=== PATIENT | male | born 1970 | race Caucasian/White ===

== ENCOUNTER 2020-07-04 23:46 | Emergency (ER) | payer SELFPAY ==
[2020-07-05 02:19] LABS: VENOUS BLOOD BASE EXCESS -2.2 mmol/L; VENOUS BLOOD HCO3 22.3 mmol/L (20-32); VENOUS BLOOD PCO2 37.6 mmHg (35-63); VENOUS BLOOD PH 7.39 (7.30-7.42)
[2020-07-05 02:20] LABS: HEMATOCRIT 43.9 % (37.9-51.0); HEMOGLOBIN 15.1 g/dL (13.5-17.0); MEAN CORPUSCULAR HEMOGLOBIN 32.4 pg (27.0-33.4); MEAN CORPUSCULAR HGB CONC 34.3 g/dL (32.0-36.0); MEAN CORPUSCULAR VOLUME 94 fl (80-97); PLATELET COUNT 325 10^3/uL (150-450); RED BLOOD COUNT 4.64 10^6/uL (4.35-5.55); RED CELL DISTRIBUTION WIDTH 15.1 % (11.5-14.0); WHITE BLOOD COUNT 6.1 10^3/uL (4.0-10.5)
[2020-07-05 02:27] LABS: INTERNATIONAL RATION (INR) 1.37
[2020-07-05 02:28] LABS: PARTIAL THROMBOPLASTIN TIME 40.4 SEC (23.5-35.8)
[2020-07-05 02:38] LABS: ALBUMIN 4.6 g/dL (3.5-5.0); ALCOHOL 277 mg/dL (NONE DETECTED); ALKALINE PHOSPHATASE 104 U/L (38-126); ANION GAP 9 (5-19); ASPARTATE AMINO TRANSFERASE 236 U/L (17-59); BILIRUBIN,DIRECT 0.2 mg/dL (0.0-0.4); BILIRUBIN,TOTAL 0.5 mg/dL (0.2-1.3); BLOOD UREA NITROGEN 21 mg/dL (7-20); CALCIUM 8.8 mg/dL (8.4-10.2); CARBON DIOXIDE 24 mmol/L (22-30); CHLORIDE 108 mmol/L (98-107); GLUCOSE 106 mg/dL (75-110); POTASSIUM 4.3 mmol/L (3.6-5.0); TOTAL PROTEIN 7.7 g/dL (6.3-8.2)
[2020-07-05 02:40] LABS: ABSOLUTE LYMPHOCYTES# (MANUAL) 1.8 10^3/uL (0.5-4.7); ABSOLUTE MONOCYTES # (MANUAL) 0.1 10^3/uL (0.1-1.4); BASOPHILS % (MANUAL) 1 % (0-2); EOSINOPHILS % (MANUAL) 5 % (0-6); LYMPHOCYTES % (MANUAL) 29 % (13-45); MONOCYTES % (MANUAL) 1 % (3-13); SEGMENTED NEUTROPHILS % (MAN) 64 % (42-78); TOTAL CELLS COUNTED 100
[2020-07-05 02:41] LABS: ANISOCYTOSIS SLIGHT; OVALOCYTES SLIGHT; POIKILOCYTOSIS SLIGHT; TEAR DROP CELLS SLIGHT
[2020-07-05 02:42] LABS: PLATELET COMMENT ADEQUATE
[2020-07-05 04:43] LABS: APPEARANCE,URINE CLEAR; BILIRUBIN,URINE NEGATIVE (NEGATIVE); COLOR,URINE YELLOW; GLUCOSE, URINE NEGATIVE (NEGATIVE); KETONES,URINE NEGATIVE (NEGATIVE); LEUKOCYTE ESTERASE,URINE NEGATIVE (NEGATIVE); NITRITE,URINE NEGATIVE (NEGATIVE); PROTEIN,URINE NEGATIVE (NEGATIVE); URINE SPECIFIC GRAVITY 1.011; UROBILINOGEN,URINE NEGATIVE mg/dL (<2.0)
[2020-07-05] MEDS ORDERED: NORMAL SALINE 1000 ML 1,000 ML IV ONE (04:57)
[2020-07-05] MEDS ORDERED: PANTOPRAZOLE SODIUM 40 MG VIAL IV PRN (04:58)
[2020-07-05] MEDS ORDERED: ONDANSETRON HCL INJ/PF 4 MG/2 ML SDV IV ONE ×3 (04:58→07:49)
[2020-07-05] MEDS ORDERED: PANTOPRAZOLE SODIUM 40 MG VIAL IV ONE (04:58)
[2020-07-05] MEDS ORDERED: CEFTRIAXONE 1 GM/D5W RTU 1 GM/50 ML RTUPB IV ONE (04:59)
[2020-07-05] MEDS ORDERED: METOPROLOL TARTRATE PF/INJ 5 MG/5 ML SDV IV ONE (05:00)
--- NOTE | 2020-07-05 07:20 | ER Document Report ---
ED General - General Chief Complaint: ETOH Abuse Stated Complaint: ETOH/ABNORMAL LABS - HPI Notes: 50-year-old male history of hypertension, alcohol dependence presents referred from [facility] for elevated alcohol level. Patient complains of one episode of bright red blood hematemesis just prior to arrival and epigastric abdominal pain. Says he has had GI bleed in the past but is unsure what interventions were performed, with the source of the bleed was, and if he was ever diagnosed with esophageal varices. Denies having cirrhosis. 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 EENT: Denies recent cold/sinus symptoms, denies throat pain CARDIOVASCULAR: Denies chest pain, ALEXANDR RESPIRATORY: Denies cough, denies shortness of breath. GASTROINTESTINAL: +abdominal pain, +nausea/vomiting. GENITOURINARY: Denies difficulty urinating, painful urination. MUSCULOSKELETAL: Denies neck pain, back pain. SKIN: Denies rash or skin lesions. HEMATOLOGIC : Denies easy bruising or bleeding. LYMPHATIC: Denies swollen, enlarged glands. NEUROLOGICAL: Denies headache, denies change in gait. PSYCHIATRIC: Denies anxiety or stress or depression. Physical Exam - Vital signs Vitals: Temp Pulse Resp BP Pulse Ox 98.4 F 116 H 18 201/110 H 96 07/05/20 00:13 07/05/20 00:13 07/05/20 00:13 07/05/20 00:13 07/05/20 00:13 - Notes Notes: PHYSICAL EXAMINATION: GENERAL: Well-appearing, well-nourished and in no acute distress. HEAD: Atraumatic, normocephalic. EYES: Pupils equal round and appropriate constriction, sclera anicteric, conjunctiva are normal. ENT: nares patent, moist mucous membranes. NECK: Normal range of motion, supple without lymphadenopathy LUNGS: Breath sounds clear to auscultation bilaterally and equal. No wheezes rales or rhonchi. HEART: Regular rate and rhythm without murmurs ABDOMEN: Soft, distended with fluid wave, no caput medusae, mild epigastric tenderness, no guarding, no rebound, no masses, no CVAT EXTREMITIES: Normal range of motion, no pitting or edema. No cyanosis. NEUROLOGICAL: Awake, alert, conversing appropriately, moves all extremities spontaneously. PSYCH: Normal mood, normal affect. SKIN: Warm, Dry, normal turgor, no rashes or lesions noted. Course - Re-evaluation Re-evalutation: 07/05/20 07:14 When episode hematemesis, well-appearing, normal vital signs. Initially markedly hypertensive, states he ran out of his metoprolol. No episodes of hematemesis in ED. No bowel symptoms. Labs show hemoglobin of 15 and INR of 1. 37. Given presence of cirrhosis attempted to arrange transfer for upper GI bleed low suspicion for variceal bleed however. Called [facility], [facility] for transfer and all said that they had no medicine beds and were not making a wait list. Called [facility] and initiated transfer, waiting for return phone call from circuit board inspector. Turned over to Dr. Bee pending transfer acceptance. - Vital Signs Vital signs: Temp Pulse Resp BP Pulse Ox 98 F 98 18 148/76 H 96 07/05/20 04:39 07/05/20 04:39 07/05/20 04:39 07/05/20 04:39 07/05/20 04:39 - Laboratory Result Diagrams: 07/05/20 02:09 07/05/20 02:09 Laboratory results interpreted by me: 07/05/20 07/05/20 07/05/20 02:09 02:09 02:09 RDW 15.1 H Monocytes % (Manual) 1 L PT 17.0 H APTT 40.4 H Chloride 108 H BUN 21 H AST 236 H ALT 148 H
[2020-07-05 07:48] LABS: HEMATOCRIT 41.2 % (37.9-51.0); HEMOGLOBIN 14.2 g/dL (13.5-17.0); MEAN CORPUSCULAR HEMOGLOBIN 32.3 pg (27.0-33.4); MEAN CORPUSCULAR HGB CONC 34.4 g/dL (32.0-36.0); MEAN CORPUSCULAR VOLUME 94 fl (80-97); PLATELET COUNT 266 10^3/uL (150-450); RED BLOOD COUNT 4.39 10^6/uL (4.35-5.55); RED CELL DISTRIBUTION WIDTH 14.8 % (11.5-14.0); WHITE BLOOD COUNT 4.5 10^3/uL (4.0-10.5)
[2020-07-05 08:34] LABS: ABSOLUTE LYMPHOCYTES# (MANUAL) 1.4 10^3/uL (0.5-4.7); ABSOLUTE MONOCYTES # (MANUAL) 0.2 10^3/uL (0.1-1.4); EOSINOPHILS % (MANUAL) 3 % (0-6); LYMPHOCYTES % (MANUAL) 31 % (13-45); MONOCYTES % (MANUAL) 5 % (3-13); SEGMENTED NEUTROPHILS % (MAN) 58 % (42-78); TOTAL CELLS COUNTED 100
[2020-07-05 08:37] LABS: ANISOCYTOSIS SLIGHT; RBC MORPHOLOGY COMMENT NORMO-CYTIC/CHROMIC
[2020-07-05 08:38] LABS: PLATELET COMMENT ADEQUATE; POIKILOCYTOSIS SLIGHT; TEAR DROP CELLS SLIGHT
[2020-07-05 08:45] LABS: BASOPHILS % (MANUAL) 3 % (0-2)
--- NOTE | 2020-07-05 09:04 | RADIOLOGY REPORT (SQ) ---
EXAM DESCRIPTION: U/S ABDOMEN LIMITED W/O DOP IMAGES COMPLETED DATE/TIME: 07/05/2020 8:51 am REASON FOR STUDY: ruq pain COMPARISON: None. TECHNIQUE: Dynamic and static grayscale images acquired of the abdomen and recorded on PACS. Additio nal selected color Doppler and spectral images recorded. LIMITATIONS: None. FINDINGS: PANCREAS: No masses. Visualized pancreatic duct normal caliber. LIVER: The liver is enlarged measured at 19 wing 4 cm in cranial caudal dimensions. Normal echogenic ity. No masses. LIVER VASCULATURE: Normal directional flow of the main portal vein and hepatic veins. GALLBLADDER: Surgically absent. ULTRASOUND-DETECTED CARDONA'S SIGN: Negative. INTRAHEPATIC DUCTS AND COMMON DUCT: The common bile duct measures 8.2 mm in diameter. AORTA: No aneurysm. RIGHT KIDNEY: Normal size. Normal echogenicity. No solid or suspicious masses. No hydronephrosis. No calcifications. PERITONEAL AND RIGHT PLEURAL SPACE: No ascites or effusions. OTHER: No other significant findings. IMPRESSION: 1. Hepatomegaly. The liver measures 19.4 cm in cranial caudal dimensions. 2. Mild dilatation of the common bile duct measured 8.2 mm. The patient has had prior cholecystecto my. No intrahepatic biliary ductal dilatation. TECHNICAL DOCUMENTATION: JOB ID: [id number] [employer]- All Rights Reserved Reading location - IP/workstation name: [email or web address]
[2020-07-05] MEDS ORDERED: LORAZEPAM INJ 2 MG/1 ML VIAL IV ONE (09:22)
[2020-07-05] MEDS ORDERED: DICYCLOMINE HCL INJ 20 MG/2 ML AMPULE IM ONE (09:49)
--- NOTE | 2020-07-05 10:35 | ER Document Report ---
ED General - General Chief Complaint: ETOH Abuse Stated Complaint: ETOH/ABNORMAL LABS Time Seen by Provider: 07/05/20 10:29 - HPI Notes: Patient is a 50-year-old male who presents to the emergency department for evaluation. He was initially brought up from [place] by a friend to go to [facility] for alcohol detox. The patient admits to drinking daily for the last 2 to 3 weeks. He states he binge drinks. He states he has had alcohol withdrawal seizures in the past. He tells me he is only drank 140 ounce glass of malt liquor yesterday. He denies use of any other illicit drugs. He states while in the waiting room at [facility] he developed vomiting, states he vomited some bright red blood. He states he is not really sure how much, he states he believes he swallowed most of it. I asked him about bowel movements, he states the last ones have been "purple, red, and green." The patient states he had a colonoscopy about 8 months ago, states he was told he has colitis. He is unsure as to whether or not he is ever had an EGD. He denies ever having been told that he has esophageal varices. He does take Protonix daily. He has some cramping epigastric abdominal pain. He has been diagnosed with chronic pancreatitis in the past. 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 Past Medical History - General Information source: Patient - Social History Smoking Status: Current Every Day Smoker Frequency of alcohol use: Heavy Drug Abuse: None Family History: Other - Cirrhosis Patient has homicidal ideation: No - Past Medical History Cardiac Medical History: Reports: Hx Hypertension Pulmonary Medical History: Reports: Hx COPD Past Surgical History: Reports: Hx Cholecystectomy Review of Systems - Review of Systems Constitutional: Weakness Gastrointestinal: See HPI Neurological/Psychological: See HPI -: Yes All other systems reviewed and negative Physical Exam - Vital signs Vitals: Temp Pulse Resp BP Pulse Ox 98.4 F 116 H 18 201/110 H 96 07/05/20 00:13 07/05/20 00:13 07/05/20 00:13 07/05/20 00:13 07/05/20 00:13 - Notes Notes: This is a 50-year-old male who appears her stated age, no acute distress. Vital signs reviewed, please refer to chart. Head is normocephalic, atraumatic. Pupils equal round, reactive to light. Neck is supple without meningismus. Heart is regular rate and rhythm. Lungs are clear to auscultation bilaterally. Abdomen is soft, mildly tender in the epigastrium and right upper quadrant without rebound or guarding, normoactive bowel sounds throughout. Extremities without cyanosis, clubbing. Posterior calves are nontender. Peripheral pulses are equal. Skin is warm and dry. Patient is awake, alert, neurological exam is nonfocal. Rectal exam was performed with GARRETT Sow, present as finished stock inspector. He has a small external hemorrhoid not actively bleeding. Good rectal tone. No stool noted, there was trace heme positive liquid stool noted on exam. Course - Re-evaluation Re-evalutation: 07/05/20 10:32 Patient presented to the emergency department for evaluation. He was initially seen by 1 of my colleagues. The patient does have an elevated INR, but his hemoglobin at first was 15. Despite his reports of possible emesis, he does not report coffee-ground emesis, just states he had a small amount of bright red emesis. He has not had any further emesis while here. His vital signs have been stable. He has had no melena here. He has no melena on exam. Serial abdominal exams are benign. There was some concern as to whether or not this was a cirrhotic patient with possible varices, but the patient has remained currently stable. His blood pressure did go higher here in the emergency department. He is on metoprolol and clonidine, although he is unsure of the doses, and has not yet taken those today. I suspect that might be a possible etiology, but I did treat him with 1 mg of IV Ativan. Patient is not very forthcoming with his history. He states he really only drinks 140 ounce glass of alcohol a day, but when confronted with the fact that this was not consistent with history of alcohol withdrawal and an alcohol level as high as his was, he states "sometimes I just do not remember how much I drink." At this point, the patient might have some alcoholic gastritis, but again his hemoglobin dropped only 1 g after a liter of fluid. He has had no further melena, no hematemesis while here. I suspect that the most important thing to be treated at this time is his alcohol dependence and potential withdrawal. He already has a follow-up appointment with GI next week. With his report of greenish stool, he certainly could be having a viral illness that is worsening his diarrhea, but I am not seeing any signs of significant GI bleeding that would prompt an admission to the hospital. He has a normal BUN to creatinine ratio. He still has a normal hemoglobin. Repeating the patient's blood alcohol. We will attempt to administer his Toprol and clonidine, need to verify dosages. Patient is currently stable, we will continue to monitor. 07/05/20 11:14 Patient states he is still nauseated, but would like to have some food. Order for ice chips given. 07/05/20 12:43 Patient has not had any nausea or vomiting while here. He has not had any melena. He is asking for food. His blood pressure has improved after being administered the Toprol and clonidine. Again, this patient does not fact have some small episode of GI bleeding, but all I could qualify was positive Hemoccult stool, but he had a colonoscopy 8 weeks ago. He has had no melena. He is had no hematemesis while here. He is already on Protonix. He actually has a follow-up with his GI doctor in 5 days. I think the most pressing issue at this time for this patient is alcohol withdrawal, and treatment for his alcohol abuse. The patient tends to agree. I will send him back to [facility] for further evaluation and care. - Vital Signs Vital signs: Temp Pulse Resp BP Pulse Ox 98 F 98 19 178/89 H 96 07/05/20 04:39 07/05/20 04:39 07/05/20 12:08 07/05/20 12:30 07/05/20 12:07 - Laboratory Result Diagrams: 07/05/20 07:27 07/05/20 02:09 Laboratory results interpreted by me: 07/05/20 07/05/20 07/05/20 02:09 02:09 02:09 RDW 15.1 H Monocytes % (Manual) 1 L Basophils % (Manual) PT 17.0 H APTT 40.4 H Chloride 108 H BUN 21 H AST 236 H ALT 148 H 07/05/20 07:27 RDW 14.8 H Monocytes % (Manual) Basophils % (Manual) 3 H PT APTT Chloride BUN AST ALT - Diagnostic Test Radiology reviewed: Reports reviewed Radiology results interpreted by me: 07/05/20 10:35 Abdomen Ultrasound 07/05/20 06:19 IMPRESSION: 1. Hepatomegaly. The liver measures 19.4 cm in cranial caudal dimensions. 2. Mild dilatation of the common bile duct measured 8.2 mm. The patient has had prior cholecystectomy. No intrahepatic biliary ductal dilatation. Discharge - Discharge Clinical Impression: Alcohol abuse with intoxication, Elevated liver function tests GI bleeding Qualifiers: GI bleed type/associated pathology: unspecified gastrointestinal hemorrhage t ype Qualified Code(s): K92.2 - Gastrointestinal hemorrhage, unspecified Condition: Stable Disposition: OTHER Instructions: Upper Gastrointestinal Bleeding ([facility]), Rectal Bleeding, Unclear Cause ([facility]), Acute Alcohol Intoxication ([facility]), Chronic Alcoholism ([facility]) Additional Instructions: There was some blood noted on your rectal exam, but no signs of significant bleeding noted through your lab work. You are already on Protonix, it is important that you continue this medication. You have evidence of chronic liver disease as a result of drinking, it is strongly advised that you abstain from all alcohol. Please keep your appointment with gastroenterology on Thursday as discussed. Please continue to take your regular medications at home as prescribed, including your metoprolol and your clonidine. If you develop increased pain, worsening vomiting that looks like coffee grounds, black tarry stools, or worsening symptoms of any sort, please return immediately to the emergency department for reevaluation. You are being sent to [facility] for further treatment of your alcohol dependence and abuse.
[2020-07-05] MEDS ORDERED: METOPROLOL SUCCINATE 25 MG TAB.SR.24H PO ONE (10:53)
[2020-07-05] MEDS ORDERED: CLONIDINE HCL 0.1 MG TABLET PO ONE (10:53)
[2020-07-05 12:45] VITALS: BP 173/94
== END 2020-07-05 13:25 | disposition other institution (70) ==
LOC: ER 23:46
DX: F10.229 Alcohol dependence with intoxication, unspecified (principal); K92.0 Hematemesis; R16.0 Hepatomegaly, not elsewhere classified; R19.5 Other fecal abnormalities; R10.13 Epigastric pain; R10.816 Epigastric abdominal tenderness; R10.811 Right upper quadrant abdominal tenderness; K64.4 Residual hemorrhoidal skin tags; R79.89 Other specified abnormal findings of blood chemistry; I10 Essential (primary) hypertension; J44.9 Chronic obstructive pulmonary disease, unspecified; F17.200 Nicotine dependence, unspecified, uncomplicated; Z90.49 Acquired absence of other specified parts of digestive tract; Z87.19 Personal history of other diseases of the digestive system; Z79.899 Other long term (current) drug therapy; Z79.51 Long term (current) use of inhaled steroids; Z83.79 Family history of other diseases of the digestive system
CPT/HCPCS: 96376; 99284; 96372; 96361; 96375; 96365; 96366; 96367; 86900; 86901; 36415; 86850; 80307; 83690; 85025; 85610; 85730; 82270; 80053; 81001; 82803; 76705; J0500; J2060; C9113; J2405; J7030; J0696

== ENCOUNTER 2020-07-06 18:53 | Emergency (ER) | payer SELFPAY ==
[2020-07-06] MEDS ORDERED: ONDANSETRON HCL INJ/PF 4 MG/2 ML SDV IV ONE (20:23)
--- NOTE | 2020-07-06 20:27 | EKG REPORT ---
SEVERITY:- ABNORMAL ECG - SINUS TACHYCARDIA PROBABLE LEFT ATRIAL ABNORMALITY INFERIOR INFARCT, OLD : Confirmed by: Gerson Soto MD 06-Jul-2020 20:26:24
--- NOTE | 2020-07-06 20:30 | ER Document Report ---
ED Medical Screen (RME) - General Chief Complaint: Chest Pain Stated Complaint: CHEST PAIN,DIZZINESS Time Seen by Provider: 07/06/20 20:18 Mode of Arrival: Ambulatory Information source: Patient - HPI Notes: 07/06/20 20:25 50-year-old male with a history of CVA in 2014, esophageal varices related to alcoholism and hypertension presents to the emergency room for sudden onset mid sternal chest pain, elevated blood pressure 186/111, dizziness and hemoptysis with dark blood that started at 12:00 this afternoon. Patient reports he is taking 3 clonidine 0.1mg and his blood pressure did. Reports he has sharp pains that come and go every 10 seconds in his chest. patient reports he did have an endoscopy done at [facility] last year which showed varices. patient reports he has a severe headache, feels like he is seeing black spots and has some numbness in his hands. He repeatedly states he feels like he is going to pass out. I have greeted and performed a rapid initial assessment of this patient. A comprehensive ED assessment and evaluation of the patient, analysis of test results and completion of the medical decision making process will be conducted by additional ED providers. PHYSICAL EXAMINATION: GENERAL: Well-appearing, well-nourished and in mild distress. HEAD: Atraumatic, normocephalic. EYES: Pupils equal round extraocular movements intact, conjunctiva are normal. NECK: Normal range of motion CV: tachycardia LUNGS: No respiratory distress - Related Data Allergies/Adverse Reactions: erythromycin base Allergy (Verified 07/05/20 03:47) Past Medical History - Past Medical History Cardiac Medical History: Reports: Hx Hypertension Pulmonary Medical History: Reports: Hx COPD Past Surgical History: Reports: Hx Cholecystectomy Physical Exam - Vital signs Vitals: Temp Pulse Resp BP Pulse Ox 99.1 F 107 H 18 187/111 H 98 07/06/20 19:09 07/06/20 19:09 07/06/20 19:09 07/06/20 19:09 07/06/20 19:09 Course - Vital Signs Vital signs: Temp Pulse Resp BP Pulse Ox 99.1 F 107 H 18 187/111 H 98 07/06/20 19:09 07/06/20 19:09 07/06/20 19:09 07/06/20 19:09 07/06/20 19:09
[2020-07-06 20:59] LABS: ABSOLUTE BASOPHILS # (AUTO) 0.1 10^3/uL (0.0-0.2); ABSOLUTE EOSINOPHILS # (AUTO) 0.2 10^3/uL (0.0-0.6); ABSOLUTE LYMPHOCYTES (AUTO) 1.5 10^3/uL (0.5-4.7); ABSOLUTE MONOCYTES (AUTO) 0.4 10^3/uL (0.1-1.4); ABSOLUTE NEUT (AUTO) 3.8 10^3/uL (1.7-8.2); BASOPHILS % (AUTO) 1.4 % (0-2); EOSINOPHILS % (AUTO) 3.8 % (0-6); HEMATOCRIT 43.3 % (37.9-51.0); HEMOGLOBIN 14.7 g/dL (13.5-17.0); MEAN CORPUSCULAR HEMOGLOBIN 31.9 pg (27.0-33.4); MEAN CORPUSCULAR VOLUME 94 fl (80-97); MONOCYTES % (AUTO) 6.1 % (3-13); PLATELET COUNT 273 10^3/uL (150-450); RED BLOOD COUNT 4.62 10^6/uL (4.35-5.55); RED CELL DISTRIBUTION WIDTH 14.9 % (11.5-14.0); SEGMENTED NEUTROPHILS % (AUTO) 63.7 % (42-78); TOTAL CELLS COUNTED % (AUTO) 100 %
[2020-07-06 21:16] LABS: ALBUMIN 4.4 g/dL (3.5-5.0); ALKALINE PHOSPHATASE 100 U/L (38-126); ANION GAP 10 (5-19); ASPARTATE AMINO TRANSFERASE 182 U/L (17-59); BILIRUBIN,DIRECT 0.1 mg/dL (0.0-0.4); BILIRUBIN,TOTAL 0.5 mg/dL (0.2-1.3); BLOOD UREA NITROGEN 13 mg/dL (7-20); CALCIUM 9.5 mg/dL (8.4-10.2); CARBON DIOXIDE 24 mmol/L (22-30); CHLORIDE 107 mmol/L (98-107); GLUCOSE 113 mg/dL (75-110); POTASSIUM 3.8 mmol/L (3.6-5.0); TOTAL PROTEIN 7.6 g/dL (6.3-8.2)
[2020-07-06 21:19] LABS: INTERNATIONAL RATION (INR) 1.02; PROTHROMBIN TIME 13.6 SEC (11.4-15.4)
[2020-07-06 21:20] LABS: PARTIAL THROMBOPLASTIN TIME 31.1 SEC (23.5-35.8)
[2020-07-06 21:27] LABS: APPEARANCE,URINE CLEAR; BILIRUBIN,URINE NEGATIVE (NEGATIVE); COLOR,URINE YELLOW; GLUCOSE, URINE NEGATIVE (NEGATIVE); KETONES,URINE NEGATIVE (NEGATIVE); LEUKOCYTE ESTERASE,URINE NEGATIVE (NEGATIVE); NITRITE,URINE NEGATIVE (NEGATIVE); PROTEIN,URINE 30 mg/dL (NEGATIVE); URINE SPECIFIC GRAVITY 1.017; UROBILINOGEN,URINE NEGATIVE mg/dL (<2.0)
[2020-07-06] MEDS ORDERED: ONDANSETRON 4 MG TAB.RAPDIS PO ONE (23:30)
[2020-07-07] MEDS ORDERED: HYDROMORPHONE HCL INJ/PF 2 MG/ML AMPULE IV ONE (00:07)
[2020-07-07] MEDS ORDERED: LABETALOL HCL INJ 20 MG/4 ML DISP.SYRIN IV ONE ×2 (00:09→01:36)
[2020-07-07] MEDS ORDERED: LORAZEPAM INJ 2 MG/1 ML VIAL IV ONE (00:09)
[2020-07-07] MEDS ORDERED: THIAMINE HCL 100 MG, FOLIC ACID 1 MG in NORMAL SALINE 250 ML IV ONE (00:11)
[2020-07-07] MEDS ORDERED: NORMAL SALINE 1000 ML 1,000 ML IV PRN (00:11)
[2020-07-07] MEDS ORDERED: MAGNESIUM SULFATE/D5W 1 GM/100 ML RTUPB IV ONE (00:12)
--- NOTE | 2020-07-07 00:15 | ER Document Report ---
ED General - General Chief Complaint: Chest Pain Stated Complaint: CHEST PAIN,DIZZINESS Time Seen by Provider: 07/06/20 20:18 Mode of Arrival: Ambulatory Information source: Patient Notes: [facility] notes Patient Name: ROSA MCKINLEY Date of : 74 Patient Status: Emergency Emergency Provider: ANGELA [facility] Date: 07/05/20 10:30 Initialization Date: 07/05/20 10:30 ED General - General Chief Complaint: ETOH Abuse Stated Complaint: ETOH/ABNORMAL LABS Time Seen by Provider: 07/05/20 10:29 - HPI Notes: Patient is a 50-year-old male who presents to the emergency department for evaluation. He was initially brought up from [place] by a friend to go to [facility] for alcohol detox. The patient admits to drinking daily for the last 2 to 3 weeks. He states he binge drinks. He states he has had alcohol withdrawal seizures in the past. He tells me he is only drank 140 ounce glass of malt liquor yesterday. He denies use of any other illicit drugs. He states while in the waiting room at [facility] he developed vomiting, states he vomited some bright red blood. He states he is not really sure how much, he states he believes he swallowed most of it. I asked him about bowel movements, he states the last ones have been "purple, red, and green." The patient states he had a colonoscopy about 8 months ago, states he was told he has colitis. He is unsure as to whether or not he is ever had an EGD. He denies ever having been told that he has esophageal varices. He does take Protonix daily. He has some cramping epigastric abdominal pain. He has been diagnosed with chronic pancreatitis in the past. 07/06/20 20:17 - ED Nursing Note by CARLOS JONES Num: [id number] : 1970 Patient Age: 50 patient presents to ED for c/o chest pain and high blood pressure. patient states he is having pain all over and has been coughing up dark blood. patient states he took three different doses of clonidine at home. patient states he has hx of varices and had a stroke in 2014. patient states he has nerve damage to l eft leg. patient states he is also nauseous and reports all of his symptoms started this afternoon. ED General AMERICA/DARRELL notes - General Chief Complaint: ETOH Abuse Stated Complaint: ETOH/ABNORMAL LABS Time Seen by Provider: 07/05/20 10:29 - HPI Notes: Patient is a 50-year-old male who presents to the emergency department for evaluation. He was initially brought up from [place] by a friend to go to [facility] for alcohol detox. The patient admits to drinking daily for the last 2 to 3 weeks. He states he binge drinks. He states he has had alcohol withdrawal seizures in the past. He tells me he is only drank 140 ounce glass of malt liquor yesterday. He denies use of any other illicit drugs. He states while in the waiting room at [facility] he developed vomiting, states he vomited some bright red blood. He states he is not really sure how much, he states he believes he swallowed most of it. I asked him about bowel movements, he states the last ones have been "purple, red, and green." The patient states he had a colonoscopy about 8 months ago, states he was told he has colitis. He is unsure as to whether or not he is ever had an EGD. He denies ever having been told that he has esophageal varices. He does take Protonix daily. He has some cramping epigastric abdominal pain. He has been diagnosed with chronic pancrea titis in the past. [facility]ir [facility] ED Medical Screen (RME) - General Chief Complaint: Chest Pain Stated Complaint: CHEST PAIN,DIZZINESS Time Seen by Provider: 07/06/20 20:18 Mode of Arrival: Ambulatory Information source: Patient - HPI Notes: 07/06/20 20:25 50-year-old male with a history of CVA in 2015, esophageal varices related to alcoholism and hypertension presents to the emergency room for sudden onset midsternal chest pain, elevated blood pressure 186/111, dizziness and hemoptysis with dark blood that started at 12:00 this afternoon. Patient reports he is taking 3 clonidine 0.1mg and his blood pressure did. Reports he has sharp pains that come and go every 10 seconds in his chest. patient reports he did have an endoscopy done at [facility] last year which showed varices. patient reports he has a severe headache, feels like he is seeing black spots and has some numbness in his hands. He repeatedly states he feels like he is going to pass out. I have greeted and performed a rapid initial assessment of this patient. A comprehensive ED assessment and evaluation of the patient, analysis of test results and completion of the medical decision making process will be conducted by additional ED providers. PHYSICAL EXAMINATION: GENERAL: Well-appearing, well-nourished and in mild distress. HEAD: Atraumatic, normocephalic. EYES: Pupils equal round extraocular movements intact, conjunctiva are normal. NECK: Normal range of motion CV: tachycardia LUNGS: No respiratory distress my notes 50-year-old male arrives with tremors and shakes and feeling very poorly with 200/150 blood pressure and has a history of alcoholism. Patient reports she also has been complaining of severe headache today and stop drinking alcohol 2 days ago. Patient is now on clonidine tablets. He also complains of epigastric abdominal pain. An ultrasound reveals hepatomegaly 19.5 cm length, dilated common bile duct and is status post cholecystectomy. Patient reports he has been having green stools. TRAVEL OUTSIDE OF THE [place] IN LAST 30 DAYS: No - HPI Onset: Other - x 48 hr Quality of pain: Achy, Fullness Severity: Severe Pain Level: 5 Associated symptoms: Headache, Nausea, Vomiting, Weakness Exacerbated by: Movement Relieved by: Remaining still Similar symptoms previously: Yes Recently seen / treated by doctor: Yes - Related Data Allergies/Adverse Reactions: erythromycin base Allergy (Verified 07/05/20 03:47) Past Medical History - General Information source: Patient - Social History Smoking Status: Current Every Day Smoker Cigarette use (# per day): Yes Chew tobacco use (# tins/day): No Smoking Education Provided: Yes Frequency of alcohol use: Heavy Drug Abuse: None Lives with: Family Family History: Reviewed & Not Pertinent, Other - Cirrhosis Patient has suicidal ideation: No Patient has homicidal ideation: No - Past Medical History Cardiac Medical History: Reports: Hx Hypertension Pulmonary Medical History: Reports: Hx COPD Past Surgical History: Reports: Hx Cholecystectomy Review of Systems - Review of Systems Constitutional: See HPI, Weakness, Recent illness EENT: See HPI, Blurred vision Cardiovascular: No symptoms reported Respiratory: No symptoms reported Gastrointestinal: See HPI, Abdominal pain, Nausea, Vomiting Genitourinary: No symptoms reported Male Genitourinary: No symptoms reported Musculoskeletal: No symptoms reported Skin: No symptoms reported Hematologic/Lymphatic: No symptoms reported Neurological/Psychological: See HPI, Weakness Physical Exam - Vital signs Vitals: Temp Pulse Resp BP Pulse Ox 99.1 F 107 H 18 187/111 H 98 07/06/20 19:09 07/06/20 19:09 07/06/20 19:09 07/06/20 19:09 07/06/20 19:09 Interpretation: Hypertensive, Tachycardic - General General appearance: Alert, Anxious - HEENT Head: Normocephalic Conjunctiva: Injected Pupils: Dilated Mouth/Lips: Normal Mucous membranes: Dry Pharynx: Normal Neck: Normal - Respiratory Respiratory status: No respiratory distress Chest status: Nontender Breath sounds: Normal Chest palpation: Normal - Cardiovascular Rhythm: Tachycardia - Abdominal Inspection: Normal Bowel sounds: Hyperactive Tenderness: Tender - Rectal Prostate: Other - deferred - Genitourinary Scrotum: Other - deferred - Back Back: Normal - Extremities General upper extremity: Normal inspection General lower extremity: Normal inspection - Neurological Neuro grossly intact: Yes Cognition: Normal Orientation: AAOx4 [place] Coma Scale Eye Opening: Spontaneous Denis Coma Scale Verbal: Oriented [place] Coma Scale Motor: Obeys Commands Denis Coma Scale Total: 15 Speech: Normal Motor strength normal: LUE, RUE, LLE, RLE Sensory: Normal - Psychological Associated symptoms: Anxious - Skin Skin Temperature: Warm Skin Moisture: Moist Course - Vital Signs Vital signs: Temp Pulse Resp BP Pulse Ox 99.1 F 107 H 18 187/111 H 98 07/06/20 19:09 07/06/20 19:09 07/06/20 19:09 07/06/20 19:09 07/06/20 19:09 - Laboratory Result Diagrams: 07/06/20 20:35 07/06/20 20:35 Laboratory results interpreted by me: 07/06/20 07/06/20 07/06/20 20:35 20:35 20:35 RDW 14.9 H Creatinine 1.30 H Est GFR (MDRD) Non-Af 59 L Glucose 113 H AST 182 H ALT 120 H Lipase 300.3 H Urine Protein 30 H - Diagnostic Test Radiology reviewed: Reports reviewed Radiology results interpreted by me: 07/07/20 01:56 CT head abdomen pelvis chest were negative per radiology nothing acute Critical Care Note - Critical Care Note Comments: I reexamined this patient around 00 45 after his 2 Dilaudid IV 2 Ativan IV and labetalol IV was given and his blood pressure was 225/110 with continued severe headache. He still reports his headache is 10 out of 10 pointing dorsally to his scalp. Patient appeared to be much improved after reexamination at 0 155. He continued to have headache approximately 7 out of 10 and therefore he was written for second dose of medication. He was no longer have any shakes of his hands. Discharge - Discharge Clinical Impression: Alcohol abuse with intoxication, DTs (delirium tremens) Hypertension Qualifiers: Hypertension type: unspecified Qualified Code(s): I10 - Essential (primary) hypertension Gastritis, alcoholic Qualifiers: Chronicity: acute Gastritis bleeding: presence of bleeding unspecified Qualified Code(s): K29.20 - Alcoholic gastritis without bleeding Condition: Fair Disposition: HOME, SELF-CARE Instructions: Antacid Therapy ([facility]) Additional Instructions: Follow-up with personal doctor this week return to ER symptoms persist take medicines as directed take Ativan 3 times a day for the next 5 days because of your alcohol withdrawal. Also take your clonidine. Prescriptions: Lorazepam [Ativan 1 mg Tablet] 1 mg PO TID PRN #15 tab PRN Reason: Sucralfate [Carafate 1 gm Tablet] 1 gm PO ACHS #120 tablet Metoprolol Tartrate [Lopressor 25 mg Tablet] 25 mg PO Q12 #30 tab
[2020-07-07] MEDS ORDERED: THIAMINE HCL INJ 200 MG/2 ML VIAL ONE (00:38)
[2020-07-07] MEDS ORDERED: FOLIC ACID INJ 5 MG/1 ML 10 ML VIAL IV PRN (00:41)
--- NOTE | 2020-07-07 01:32 | RADIOLOGY REPORT (SQ) ---
EXAM DESCRIPTION: CT HEAD WITHOUT IV CONTRAST COMPLETED DATE/TME: 07/06/2020 20:22 CLINICAL HISTORY: [place], BP 186/111, blurred vision, took BP meds today COMPARISON: None available TECHNIQUE: Axial CT of the head obtained from the skull apex to the skull base without contrast. FINDINGS: No acute intracranial hemorrhage identified. No mass, mass effect, shift of the midline, abnormal extra-axial fluid collection or CT evidence of acute ischemic change identified. The ventricular system is unremarkable. No acute abnormalities of the supratentorial white matter, basal ganglia, cerebellum, or brainstem. Mucosal thickening of the paranasal sinuses. Mastoid air cells are well aerated.. No skull fracture identified. Visualized orbits and globes are unremarkable. IMPRESSION: 1. No acute intracranial abnormality identified. This exam was performed according to our departmental dose-optimization program, which includes automated exposure control, adjustment of the mA and/or kV according to patient size and/or use of iterative reconstruction technique.
--- NOTE | 2020-07-07 01:35 | RADIOLOGY REPORT (SQ) ---
CT CHEST, ABDOMEN, AND PELVIS WITH INTRAVENOUS CONTRAST: 07/07/2020 12:31 AM CDT HISTORY: 50-year old with abdominal and chest pain. COMPARISON: None available TECHNIQUE: Axial contiguous images were obtained from the lung apices to the proximal femurs with intravenous intravenous contrast administered. Sagittal and coronal reconstructions were also obtained and reviewed. This exam was performed according to our departmental dose-optimization program, which includes automated exposure control, adjustment of the mA and/or KV according to the patient's size and/or use of iterative reconstruction technique. FINDINGS: The heart size is mildly enlarged. No pericardial effusion is seen. No significant mediastinal, supraclavicular, or axillary lymphadenopathy is seen. The thoracic aorta is normal in size. The main pulmonary artery is within normal limits of size. No obvious filling defect is seen at the pulmonary arteries. There is no evidence of a focal consolidative airspace opacity. There is no evidence of pleural effusions or a pneumothorax. The visualized hepatic parenchyma is diffusely low in attenuation. No focal enhancing lesion is seen. Pneumobilia is incidentally seen. The gallbladder is surgically absent. The spleen and pancreas are normal in contour. The bilateral adrenal glands appear unremarkable. Both kidneys demonstrate no evidence of hydronephrosis. The urinary bladder is mildly distended, and appears grossly unremarkable. The stomach is not well distended. The small bowel loops appear unremarkable. No pericolonic inflammatory stranding is seen. The appendix appears unremarkable. There is no evidence of pneumoperitoneum or free fluid. The aorta and IVC appear normal in size. No significantly enlarged lymph nodes are seen in the abdomen or pelvis. Review of the bone show no evidence of any suspicious lytic or blastic lesions. Multilevel degenerative changes are seen within the lumbar spine. IMPRESSION: No acute process is seen within the chest, abdomen or pelvis. Hepatic steatosis
[2020-07-07] MEDS ORDERED: MORPHINE SULFATE 10 MG/ML INJ IV ONE (01:36)
[2020-07-07] MEDS ORDERED: PROCHLORPERAZINE EDISYLATE INJ 10 MG/2 ML VIAL IV ONE (01:36)
[2020-07-07] MEDS ORDERED: FAMOTIDINE INJ/PF 20 MG/2 ML SDV IV ONE (01:39)
[2020-07-07] MEDS ORDERED: SUCRALFATE 1 GM TABLET PO ONE (01:58)
[2020-07-07] MEDS ORDERED: ENALAPRILAT DIHYDRATE INJ/PF 2.5 MG/2 ML SDV IV ONE (01:58)
[2020-07-07 03:33] VITALS: BP 159/92
== END 2020-07-07 03:32 | disposition home or self-care (01) ==
LOC: ER 18:53
DX: K29.21 Alcoholic gastritis with bleeding (principal); F10.231 Alcohol dependence with withdrawal delirium; F10.229 Alcohol dependence with intoxication, unspecified; K76.0 Fatty (change of) liver, not elsewhere classified; R07.9 Chest pain, unspecified; R10.13 Epigastric pain; I10 Essential (primary) hypertension; R42 Dizziness and giddiness; R51 Headache; R19.5 Other fecal abnormalities; R20.0 Anesthesia of skin; R53.1 Weakness; R00.0 Tachycardia, unspecified; F17.210 Nicotine dependence, cigarettes, uncomplicated; J44.9 Chronic obstructive pulmonary disease, unspecified; Z79.899 Other long term (current) drug therapy; Z87.19 Personal history of other diseases of the digestive system; Z90.49 Acquired absence of other specified parts of digestive tract; Z88.1 Allergy status to other antibiotic agents
CPT/HCPCS: 93005; 96376; 99285; 96361; 96375; 96365; 96366; 96368; 36415; 80307; 83690; 83735; 85025; 85610; 85730; 80053; 81001; 84484; 70450; 71260; 74177; 93010; S0119; J3490 ×2; J2270; J1170; J2060; J3475; J0780; J3411; J7030; J7050; S0028

== ENCOUNTER 2020-07-27 14:12 | Emergency (ER) | payer SELFPAY ==
[2020-07-27] MEDS ORDERED: PROMETHAZINE HCL 25 MG TABLET PO ONE (14:45)
[2020-07-27] MEDS ORDERED: OXYCODONE-ACETAMINOPHEN 5-325 MG TABLET PO ONE (14:45)
[2020-07-27] MEDS ORDERED: NORMAL SALINE 1000 ML 1,000 ML IV ONE (14:47)
--- NOTE | 2020-07-27 14:50 | ER Document Report ---
ED Medical Screen (RME) - General Chief Complaint: Abdominal Pain Stated Complaint: BODY PAIN Time Seen by Provider: 07/27/20 14:33 Mode of Arrival: Ambulatory Information source: Patient Notes: 50-year-old male presented to ED for complaint of severe upper abdominal pain. He states that he had gallbladder removed recently at [facility]. He states then on a week ago he had a MRCP and remove stones/rocks from his duct. He states since that time he has had a lot of pain in the upper abdomen surrounding around to his flank with nausea and spitting up some dark red blood. He states he called [facility] and they told him they could not get an appointment for him until Thursday. He states he cannot wait till Thursday so he came to the emergency room. He states they did offer him narcotics and he refused him at that time but now he sorry. He states he did take some Zofran but that did not help. He does have a history of cholecystectomy MRCP Micaela fundoplication for hiatal hernia. He states he does smoke cigarettes a day but does not do any drinking or drugs. I have greeted and performed a rapid initial assessment of this patient. A comprehensive ED assessment and evaluation of the patient, analysis of test results and completion of medical decision making process will be conducted by an additional ED providers. TRAVEL OUTSIDE OF THE [place] IN LAST 30 DAYS: No - Related Data Allergies/Adverse Reactions: erythromycin base Allergy (Verified 07/05/20 03:47) Past Medical History - Past Medical History Cardiac Medical History: Reports: Hx Hypertension Pulmonary Medical History: Reports: Hx COPD Past Surgical History: Reports: Hx Cholecystectomy Physical Exam - Vital signs Vitals: Temp Pulse Resp BP Pulse Ox 98.1 F 72 20 161/90 H 95 07/27/20 14:22 07/27/20 14:22 07/27/20 14:22 07/27/20 14:22 07/27/20 14:22 Course - Vital Signs Vital signs: Temp Pulse Resp BP Pulse Ox 98.1 F 72 20 161/90 H 95 07/27/20 14:22 07/27/20 14:22 07/27/20 14:22 07/27/20 14:22 07/27/20 14:22
[2020-07-27 15:24] LABS: APPEARANCE,URINE CLEAR; BILIRUBIN,URINE NEGATIVE (NEGATIVE); COLOR,URINE YELLOW; GLUCOSE, URINE NEGATIVE (NEGATIVE); KETONES,URINE NEGATIVE (NEGATIVE); LEUKOCYTE ESTERASE,URINE NEGATIVE (NEGATIVE); NITRITE,URINE NEGATIVE (NEGATIVE); PROTEIN,URINE NEGATIVE (NEGATIVE); URINE SPECIFIC GRAVITY 1.018; UROBILINOGEN,URINE NEGATIVE mg/dL (<2.0)
[2020-07-27 15:27] LABS: ABSOLUTE BASOPHILS # (AUTO) 0.2 10^3/uL (0.0-0.2); ABSOLUTE EOSINOPHILS # (AUTO) 0.2 10^3/uL (0.0-0.6); ABSOLUTE LYMPHOCYTES (AUTO) 1.5 10^3/uL (0.5-4.7); ABSOLUTE MONOCYTES (AUTO) 0.7 10^3/uL (0.1-1.4); ABSOLUTE NEUT (AUTO) 5.5 10^3/uL (1.7-8.2); BASOPHILS % (AUTO) 1.9 % (0-2); EOSINOPHILS % (AUTO) 1.9 % (0-6); HEMATOCRIT 39.7 % (37.9-51.0); HEMOGLOBIN 13.5 g/dL (13.5-17.0); LYMPHOCYTES % (AUTO) 18.3 % (13-45); MEAN CORPUSCULAR HEMOGLOBIN 30.8 pg (27.0-33.4); MEAN CORPUSCULAR VOLUME 91 fl (80-97); MONOCYTES % (AUTO) 8.6 % (3-13); PLATELET COUNT 414 10^3/uL (150-450); RED BLOOD COUNT 4.39 10^6/uL (4.35-5.55); RED CELL DISTRIBUTION WIDTH 15.9 % (11.5-14.0); SEGMENTED NEUTROPHILS % (AUTO) 69.3 % (42-78); TOTAL CELLS COUNTED % (AUTO) 100 %
[2020-07-27 15:29] LABS: ALBUMIN 4.5 g/dL (3.5-5.0); ALKALINE PHOSPHATASE 144 U/L (38-126); ANION GAP 14 (5-19); ASPARTATE AMINO TRANSFERASE 104 U/L (17-59); BILIRUBIN,DIRECT 0.4 mg/dL (0.0-0.4); BILIRUBIN,TOTAL 0.5 mg/dL (0.2-1.3); BLOOD UREA NITROGEN 21 mg/dL (7-20); CARBON DIOXIDE 26 mmol/L (22-30); CHLORIDE 103 mmol/L (98-107); GLUCOSE 97 mg/dL (75-110); POTASSIUM 4.3 mmol/L (3.6-5.0); TOTAL PROTEIN 7.5 g/dL (6.3-8.2)
--- NOTE | 2020-07-27 16:59 | RADIOLOGY REPORT (SQ) ---
EXAM DESCRIPTION: U/S ABDOMEN LIMITED W/O DOP IMAGES COMPLETED DATE/TIME: 07/27/2020 4:17 pm REASON FOR STUDY: recent cholecystectomy and MRCP pain COMPARISON: CT of the abdomen and pelvis with contrast from 07/07/2020. TECHNIQUE: Dynamic and static grayscale images acquired of the abdomen and recorded on PACS. Additio nal selected color Doppler and spectral images recorded. LIMITATIONS: None. FINDINGS: PANCREAS: The visualized portions of the pancreas appear normal. LIVER: The echogenicity of hepatic parenchyma is increased. LIVER VASCULATURE: Hepatopetal directional flow in the portal veins. GALLBLADDER: The gallbladder is surgically absent. INTRAHEPATIC DUCTS AND COMMON DUCT: The common bile duct measures 10 mm in diameter. The linear echo genic structures with dirty shadowing within the intrahepatic bile ducts represent pneumobilia. INFERIOR VENA CAVA: Not assessed. AORTA: Not assessed. RIGHT KIDNEY: The right kidney measures 10.6 cm in length. There is no hydronephrosis. PERITONEAL AND RIGHT PLEURAL SPACE: No ascites or effusions. OTHER: No other findings. IMPRESSION: 1. Hepatic steatosis and pneumobilia. 2. Mild dilatation of the common bile duct which is expected in the setting of prior cholecystectomy . TECHNICAL DOCUMENTATION: JOB ID: [id number] [employer]- All Rights Reserved Reading location - IP/workstation name: [email or web address]
[2020-07-27] MEDS ORDERED: DIPHENHYDRAMINE HCL 50 MG/ML VIAL IV ONE (17:50)
[2020-07-27] MEDS ORDERED: METOCLOPRAMIDE HCL INJ/PF 10 MG/2 ML SDV IV ONE (17:50)
[2020-07-27] MEDS ORDERED: PANTOPRAZOLE SODIUM 40 MG VIAL IV ONE (18:47)
[2020-07-27] MEDS ORDERED: PROCHLORPERAZINE EDISYLATE INJ 10 MG/2 ML VIAL IV ONE (18:47)
[2020-07-27] MEDS ORDERED: FENTANYL CITRATE INJ/PF 100 MCG/2 ML AMPUL IV ONE (18:49)
[2020-07-27 19:26] LABS: URINE AMPHETAMINES SCREEN NEGATIVE; URINE BARBITURATES SCREEN NEGATIVE; URINE BENZODIAZEPINES SCREEN NEGATIVE; URINE COCAINE SCREEN NEGATIVE; URINE MARIJUANA (THC) SCREEN NEGATIVE; URINE METHADONE SCREEN NEGATIVE; URINE PHENCYCLIDINE SCREEN NEGATIVE
[2020-07-27 20:10] LABS: INTERNATIONAL RATION (INR) 1.08; PROTHROMBIN TIME 14.2 SEC (11.4-15.4)
[2020-07-27 20:11] LABS: PARTIAL THROMBOPLASTIN TIME 35.1 SEC (23.5-35.8)
--- NOTE | 2020-07-27 20:18 | ER Document Report ---
ED General - General Mode of Arrival: Ambulatory TRAVEL OUTSIDE OF THE [place] IN LAST 30 DAYS: No <ADELE CUNHA - Last Filed: 07/27/20 20:19> <RADHA PORRAS IV - Last Filed: 07/27/20 22:07> - General Chief Complaint: Abdominal Pain Stated Complaint: BODY PAIN Time Seen by Provider: 07/27/20 14:33 - HPI Notes: Chief complaint: Abdominal pain History of present illness: 50-year-old male presented to ED for complaint of severe upper abdominal pain. He states that he had gallbladder removed 1 year ago at [facility]. He states then on a week ago he had a MR CP and remove stones from his duct. Following the procedure he had severe reflux symptoms and was told that he had gastritis. Up until recently he was abusing alcohol and had recently been a detox center. He says he has not consumed any alcohol now and close to a month. Several episodes of vomiting today. He says he is vomited up some small amounts of blood-streaked material. He denies any melena. He denies drug abuse. He denies any hallucinations or tremors at this time. (ADELE CUNHA) - Related Data Allergies/Adverse Reactions: erythromycin base Allergy (Verified 07/05/20 03:47) Past Medical History - General Information source: Patient - Social History Smoking Status: Current Every Day Smoker Chew tobacco use (# tins/day): No Frequency of alcohol use: None Drug Abuse: None Family History: Reviewed & Not Pertinent, Other - Past Medical History Cardiac Medical History: Reports: Hx Hypertension Pulmonary Medical History: Reports: Hx COPD Past Surgical History: Reports: Hx Cholecystectomy <ADELE CUNHA - Last Filed: 07/27/20 20:19> Review of Systems <ADELE CUNHA - Last Filed: 07/27/20 20:19> - Review of Systems Notes: Constitutional: Negative for fever. HENT: Negative for sore throat. Eyes: Negative for visual changes. Cardiovascular: Negative for chest pain. Respiratory: Negative for shortness of breath. Gastrointestinal: As per HPI. Genitourinary: Negative for dysuria. Musculoskeletal: Negative for back pain. Skin: Negative for rash. Neurological: Negative for headaches, weakness or numbness. 10 point ROS negative except as marked above and in HPI. (ADELE CUNHA) Physical Exam <ADELE CUNHA - Last Filed: 07/27/20 20:19> - Vital signs Vitals: Temp Pulse Resp BP Pulse Ox 98.1 F 72 20 161/90 H 95 07/27/20 14:22 07/27/20 14:22 07/27/20 14:22 07/27/20 14:22 07/27/20 14:22 - Notes Notes: GENERAL: Middle-age male appearing moderately uncomfortable. SKIN: Good turgor no rashes. HEAD: Normocephalic atraumatic. EYES: PERRLA. EOMI. Conjunctivae and sclerae clear. EARS: CANALS AND TMS CLEAR. NOSE: CLEAR. MOUTH: Moist mucosa. Good dentition. No stridor or edema. No drooling. NECK: Supple. No masses or thyromegaly. No adenopathy. Carotids 2+ without bruits. No JVD. BACK: Symmetrical without tenderness. CHEST: Respirations unlabored. Breath sounds clear and symmetrical. HEART: Regular rhythm. No murmur gallop or rub. ABDOMEN: Mild epigastric tenderness. Soft without masses, organomegaly or rebound. Bowel sounds normally active. No bruits. GENITALIA: Deferred. EXTREMITIES: No edema. No calf tenderness. Cap refill less than 1.5 seconds. Dorsalis pedis and posterior tibial pulses 3+ and symmetrical. NEUROLOGICAL: GCS 15. Alert and oriented x3. Fluent speech. Cranial nerves II through XII intact. Sensorimotor and cerebellar normal. Normal tone. PSYCHIATRIC: Appropriate affect. (ADELE CUNHA) Course - Laboratory Result Diagrams: 07/27/20 14:59 07/27/20 14:59 <ADELE CUNHA - Last Filed: 07/27/20 20:19> - Laboratory Result Diagrams: 07/27/20 14:59 07/27/20 14:59 - Consults Dr. Ly Time consulted: 21:14 - Dr. Ly came to the emergency department and evaluated the patient himself. He stated this MD that if the patient had ulcers they would have seen it when they did the ERCP on the patient and [place]. Furthermore he states that the patient is continuing to smoke and indulge in dietary indiscretion such as chocolate that is prone to make his symptoms worse. Additionally, the patient has been given prescriptions for Carafate and acid blockers which he has not been taking as instructed. Dr. Ly does not feel the patient needs to be admitted for an EGD as ulcers would have been seen during his ERCP done at [place]. Dr. 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 Consulted provider: will come to ER <RADHA PORRAS IV - Last Filed: 07/27/20 22:07> - Re-evaluation Re-evalutation: 07/27/20 20:24 Further care of this patient is turned over to Dr. Radha Porras at this time (ADELE CUNHA) - Vital Signs Vital signs: Temp Pulse Resp BP Pulse Ox 98.1 F 72 20 161/90 H 95 07/27/20 14:22 07/27/20 14:22 07/27/20 14:22 07/27/20 14:22 07/27/20 14:22 - Laboratory Laboratory results interpreted by me: 07/27/20 07/27/20 14:59 14:59 RDW 15.9 H BUN 21 H AST 104 H ALT 113 H Alkaline Phosphatase 144 H - EKG Interpretation by Me Additional EKG results interpreted by me: 07/27/20 20:24 Twelve-lead EKG from 1947 hrs. reviewed contemporaneously by me demonstrating normal sinus rhythm rate of 59 and a QRS axis of 0 degrees. There is borderline prolongation of the QT interval with a QTC of [address]/T wave changes are present. (ADELE CUNHA) - Consults Dr. Ly Reason for consultation: 07/27/20 22:03 epigastric pain (RADHA PORRAS IV) Discharge <ADELE CUNHA - Last Filed: 07/27/20 20:19> <RADHA PORRAS IV - Last Filed: 07/27/20 22:07> - Discharge Clinical Impression: Acute gastritis Condition: Stable Disposition: HOME, SELF-CARE Additional Instructions: Return to the Emergency Department without delay if any worse. Follow-up with your doctor in [place] as scheduled. Take your medications prescribed by your [place] doctors as directed. Abdominal Pain There are many causes of abdominal pain. Pain can mean a serious problem requiring surgery (such as appendicitis). It can also be an innocent problem that goes away on its own (such as a viral infection). Often, time must pass to determine the cause of pain. The physician does not feel that hospitalization is necessary, at present. Things may change within the next 24 hours. Call the doctor or come back for re- examination if any problems occur, such as: (1) Pain that becomes more severe, steady, or becomes concentrated in one specific area. Also, pain that is more severe with movement or coughing. (2) Vomiting that persists or becomes more frequent. (3) Blood in the vomitus, urine, or bowel movements. Blood in the stool may have a tarry or black appearance. (4) Shaking chills or fever greater than 100 degrees F. (5) The abdomen becomes more distended or swollen. (6) Bowel movements cease. (7) Failure to improve as expected. HOME CARE INSTRUCTIONS & INFORMATION: Thank you for choosing us for your medical needs. We hope you're satisfied with the care you received. After you leave, you must properly care for your problem and, at the same time, observe its progress. Any condition can change. Some illnesses can change rapidly over hours or days. If your condition worsens, return to the Emergency Department or see your physician promptly. ABOUT YOUR X-RAYS AND EKG'S: If you had an EKG or X-rays taken, they have been read by the Emergency Physician. The X-rays and EKG's will also be read by a Radiologist or Lean Process Deployment Consultant within 24 hours. If discrepancies are noted, you will be notified by telephone. Please be certain the ED has a correct telephone number & address where you can be reached. Also, realize that some fractures or abnormalities do not show up on initial X-rays. If your symptoms continue, see your physician. ABOUT YOUR LABORATORY TEST: If you had laboratory tests, the results have been reviewed by the Emergency Physician. Some test results (for example cultures) may not be available for several days. You will be contacted if any test result shows you need additional treatment. Please be certain the ED has a correct telephone number and address where you can be reached. ABOUT YOUR MEDICATIONS: You will receive instructions on how to take your medicine on the prescription label you receive. Additional information may be provided by the Pharmacy. If you have questions afterwards, call the ED for clarification or further instructions. Some prescribed medications may cause drowsiness. Do not perform tasks such as driving a car or operating machinery without consulting your Pharmacist. If you feel you need a refill of pain medication, your condition will need re-evaluation. Please do not call for a refill of any medication. ABOUT YOUR SIGNATURE: Signature of this document acknowledges to followin. Understanding that you received emergency treatment and that you may be released before al medical problems are known or treated. Please be certain the ED has a correct phone number & address where you can be reached. 2. Acknowledgement that you will arrange for follow-up care as recommended. 3. Authorization for the Emergency Physician to provide information to your follow-up Physician in order to maximize your care. AT ANY TIME, IF YOUR SYMPTOMS CHANGE SIGNIFICANTLY OR WORSEN OR YOU DEVELOP NEW SYMPTOMS, RETURN TO THE EMERGENCY DEPARTMENT IMMEDIATELY FOR RE-EVALUATION. OUR GOAL IS TO PROVIDE EXCELLENT MEDICAL CARE! WE HOPE THAT WE HAVE MET YOUR EXPECTATIONS DURING YOUR EMERGENCY DEPARTMENT VISIT AND THAT YOU FEEL YOU HAVE RECEIVED EXCELLENT CARE!
--- NOTE | 2020-07-27 20:18 | RADIOLOGY REPORT (SQ) ---
EXAM DESCRIPTION: XR ABDOMEN SUPINE AND ERECT WITH CHEST (ABD ACUTE SERIES) COMPLETED DATE/TME: 07/27/2020 18:49 CLINICAL HISTORY: 50 years, Male, Epigastric pain COMPARISON: Prior chest CT from 07/07/2020 NUMBER OF VIEWS: 4 TECHNIQUE: 4 frontal radiographs of the chest and abdomen were acquired LIMITATIONS: None. FINDINGS: Cardiac and mediastinal contours are normal. Lungs are clear. No pleural effusion or pneumothorax. Gas and a mild amount of stool are noted throughout the large bowel. Scattered nondilated loops of small bowel are visible throughout the abdomen. Surgical clips project over the right upper quadrant. No suspicious osseous anomalies are appreciated. There are a few scattered phleboliths projecting over the pelvic inlet. No subdiaphragmatic free air is appreciated. IMPRESSION: No acute disease within the chest. Nonobstructive bowel gas pattern. copyright 2010 [employer]- All Rights Reserved
[2020-07-27] MEDS ORDERED: LIDOCAINE 2% VISCOUS SOLN 15 ML UDCUP PO ONE (22:01)
[2020-07-27] MEDS ORDERED: MAG HYDROX/AL HYDROX/SIMETH SUSP 30 ML UDCUP PO ONE (22:02)
[2020-07-27] MEDS ORDERED: METOCLOPRAMIDE HCL ORAL SOLN 10 MG/10 ML UDCUP PO ONE (22:02)
--- NOTE | 2020-07-27 22:18 | PDOC CONSULTATION ---
Consultation Consult Date: 07/27/20 Provider Consulted: ROB BOUDREAUX Consult reason:: Epigastric pain with GERD and dyspepsia History of Present Illness History of Present Illness: ROSA MCKINLEY is a 50 year old male, with a history of alcohol abuse currently off alcohol for the past 3 weeks, the patient went to [facility] and underwent an ERCP about a week and a half ago for retained bile duct stones. The procedure was successful. During endoscopy patient was noted to have some gastritis and was recommended to take Carafate, Protonix, MiraLAX, and GI cocktail. The patient reports a previous laparoscopic cholecystectomy about a year ago. In addition, the patient smokes even though he is trying to quit smoking and is currently not following any specific diet. He has a history of alcohol abuse and reports to have been drinking until 2 to 3 weeks ago. He presents to the emergency room complaining of epigastric mid chest pain radiated to the right side to the back. Past Medical History Cardiac Medical History: Reports: Hypertension Pulmonary Medical History: Reports: Chronic Obstructive Pulmonary Disease (COPD) Past Surgical History Past Surgical History: Reports: Cholecystectomy Social History Information Source: Patient Smoking Status: Current Every Day Smoker Electronic Cigarette use?: No Frequency of Alcohol Use: Heavy Hx Recreational Drug Use: No Family History Family History: Reviewed & Not Pertinent, Other Parental Family History Reviewed: No Children Family History Reviewed: No Sibling(s) Family History Reviewed.: No Medication/Allergy Home Medications: Clonidine HCl [Catapres 0.1 mg Tablet] 0.1 mg PO Q12 07/05/20 Hydroxyzine Pamoate [Vistaril 50 mg Capsule] 50 mg PO BID PRN 07/05/20 Sertraline HCl [Zoloft 50 mg Tablet] 50 mg PO DAILY 07/05/20 Lorazepam [Ativan 1 mg Tablet] 1 mg PO TID PRN #15 tab 07/07/20 Metoprolol Tartrate [Lopressor 25 mg Tablet] 25 mg PO Q12 #30 tab 07/07/20 Sucralfate [Carafate 1 gm Tablet] 1 gm PO ACHS #120 tablet 07/07/20 Allergies/Adverse Reactions: erythromycin base Allergy (Verified 07/05/20 03:47) Physical Exam Vital Signs: Temp Pulse Resp BP Pulse Ox 98.1 F 72 20 161/90 H 95 07/27/20 14:22 07/27/20 14:22 07/27/20 14:22 07/27/20 14:22 07/27/20 14:22 Intake & Output 07/26/20 07/27/20 07/28/20 06:59 06:59 06:59 Intake Total 1000 Balance 1000 Weight 99.1 kg General appearance: PRESENT: no acute distress, obese, well-developed Head exam: PRESENT: atraumatic Eye exam: PRESENT: EOMI Mouth exam: PRESENT: moist, neck supple Neck exam: PRESENT: full ROM Respiratory exam: PRESENT: clear to auscultation nils Cardiovascular exam: PRESENT: RRR GI/Abdominal exam: PRESENT: normal bowel sounds, soft, tenderness - On palpation in the epigastrium Rectal exam: PRESENT: deferred Extremities exam: PRESENT: full ROM Musculoskeletal exam: PRESENT: full ROM Neurological exam: PRESENT: alert, altered, oriented to person Psychiatric exam: PRESENT: appropriate affect Skin exam: PRESENT: warm Results Laboratory Results: 07/27/20 14:59 07/27/20 14:59 07/27/20 07/27/20 07/27/20 14:59 14:59 14:59 WBC 8.0 RBC 4.39 Hgb 13.5 Hct 39.7 MCV 91 MCH 30.8 MCHC 34.0 RDW 15.9 H Plt Count 414 Seg Neutrophils % 69.3 Sodium 142.8 Potassium 4.3 Chloride 103 Carbon Dioxide 26 Anion Gap 14 BUN 21 H Creatinine 1.00 Est GFR ( Amer) > 60 Glucose 97 Calcium 10.0 Total Bilirubin 0.5 AST 104 H Alkaline Phosphatase 144 H Total Protein 7.5 Albumin 4.5 Lipase 175.3 Urine Color YELLOW Urine Appearance CLEAR Urine pH 5.0 Ur Specific [place] 1.018 Urine Protein NEGATIVE Urine Glucose (UA) NEGATIVE Urine Ketones NEGATIVE Urine Blood NEGATIVE Urine Nitrite NEGATIVE Ur Leukocyte Esterase NEGATIVE Urine WBC (Auto) 0 Urine RBC (Auto) 0 07/27/20 14:55 Troponin I < 0.012 Impressions: Abdomen Ultrasound 07/27/20 14:46 IMPRESSION: 1. Hepatic steatosis and pneumobilia. 2. Mild dilatation of the common bile duct which is expected in the setting of prior cholecystectomy. Acute Abdomen Series 07/27/20 18:49 IMPRESSION: No acute disease within the chest. Nonobstructive bowel gas pattern. copyright 2010 [employer]- All Rights Reserved Assessment & Plan - Diagnosis (1) GERD with esophagitis Is this a current diagnosis for this admission?: Yes (2) Dyspepsia Is this a current diagnosis for this admission?: Yes (3) Acute gastritis Is this a current diagnosis for this admission?: Yes - Plan Summary Plan Summary: Assessment: Epigastric / lower mid chest pain with dyspepsia Status post ERCP a week and a half ago successful for removal of retained common bile duct stones Gastritis identified during the ERCP Status post laparoscopic cholecystectomy a year ago UA normal Blood work done today reveals normal set for for slight elevated AST ALT and alkaline phosphatase Ultrasound of the abdomen is overall normal with routine post Abdominal obstructive series negative Physical exam significant only for mild epigastric pain on palpation The patient was recommended Carafate, PPIs, GI cocktail, and Maalox following 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 or greasy foods, acidy fluids such as orange or lemon juice and carbonated juices Complete avoidance of alcohol Quit smoking Patient recommended to return to [facility] this coming Thursday as scheduled for follow-up with his ammunition specialist after the recent ERCP Do not give any narcotics to this patient
[2020-07-27 22:49] VITALS: BP 183/102
--- NOTE | 2020-07-27 23:32 | EKG REPORT ---
SEVERITY:- BORDERLINE ECG - SINUS RHYTHM BORDERLINE R WAVE PROGRESSION, ANTERIOR LEADS BORDERLINE PROLONGED QT INTERVAL : Confirmed by: Monica Stovall MD 27-Jul-2020 23:31:49
== END 2020-07-27 22:53 | disposition home or self-care (01) ==
LOC: ER 14:12
DX: K29.00 Acute gastritis without bleeding (principal); R10.10 Upper abdominal pain, unspecified; R10.13 Epigastric pain; R11.10 Vomiting, unspecified; Z90.49 Acquired absence of other specified parts of digestive tract; Z88.1 Allergy status to other antibiotic agents; F17.200 Nicotine dependence, unspecified, uncomplicated; I10 Essential (primary) hypertension; J44.9 Chronic obstructive pulmonary disease, unspecified
CPT/HCPCS: 93005; 99285; 96361; 96374; 96375; 36415; 87086; 83690; 85025; 85610; 85730; 80053; 81001; 84484; 80307; 74022; 76705; 93010; J1200; J3010; J3490; C9113; J0780; J7030